=== PATIENT | female | born 1990 | race Caucasian/White ===

== ENCOUNTER 2019-03-28 12:12 | Emergency (ER) | payer OTHER ==
[~2019-03-28] VITALS: Ht 162.6 cm; Wt 78.6 kg
[2019-03-28 12:27] VITALS: BP 154/86
--- NOTE | 2019-03-28 12:27 | NUR ---
ANIMAL CONTROL CALLED DISPATCH AND NOTIFIED OF DOG BITE AND REQUESTED ANIMAL CONTROL.
--- NOTE | 2019-03-28 12:40 | NUR ---
ANIMAL CONTROL ANIMAL CONTROL ARRIVED AND IN ROOM TO TALK WITH PATIENT.
[2019-03-28] MEDS ORDERED: TRIPLE ANTIBIOTIC OINTMENT TP ONE (13:12)
[2019-03-28] MEDS ORDERED: ADACEL VIAL IM ONE ×2 (13:22→13:30)
--- NOTE | 2019-03-28 13:28 | ER.PDOC ---
General Chief Complaint: Animal Bite Stated Complaint: ANIMAL BITE Time seen by MD: 13:19 Source: patient Exam Limitations: no limitations History of Present Illness Initial Comments Dog bite to the face last night. Onset: yesterday Where: park Animal: dog Animal Appearance: unknown Animal Immunizations: unknown Animal Disposition: Animal Control Notified Context of Attack: entered animal's domain Severity of Injury: bitten Injury Location: face Past Medical History Medical History: no pertinent history Surgical History: cholecystectomy, other Social History Alcohol Use: occassionally Drug Use: none Review of Systems Constitutional: no symptoms reported Respiratory: no symptoms reported Cardiovascular: no symptoms reported Gastrointestinal: no symptoms reported Skin: see HPI All Other Systems: Reviewed and Negative Physical Exam General Appearance: alert, no distress Skin: laceration (beneath left lower eyelid) Neuro/Vascular/Tendon: no vascular compromise, sensation nml, oriented x3, nml ROM, CN's nml as tested Psych: mood/affect nml Neck: uninjured, nml inspection Resp/CVS: chest non-tender, breath sounds nml, heart sounds nml, reg. rate & rhythm Abdomen: nml inspection, non-tender Back: nml inspection Extremities: nml inspection, no infection, ROM nml 1 - Lac Results/Orders Results/Orders Orders - NIESHA MANUEL MD Neomycin/Bacitracin/Polymyxinb (Triple A (03/28/19 13:12) Diph,Pertuss(Acell),Tet Vac/Pf (Adacel V (03/28/19 13:30) Vital Signs Date Time Temp Pulse Resp B/P (MAP) Pulse Ox O2 Delivery O2 Flow Rate FiO2 03/28/19 12:27 98.2 97 18 154/86 (108) 99 Room Air 03/28/19 12:27 98.2 97 18 99 03/28/19 12:27 98.2 97 18 Progress Progress Wound cleaned and dressed by RN. Animal control came and saw patient here. Told patient that she has to follow up with Department of health in 2 days when they will be open for post exposure prophylaxis. She voiced understanding. Course Sepsis Screening Results: Posi: POSITIVE SEPSIS RISK Vitals & review Data Vital Sign - Last 24 Hours 03/28/19 03/28/19 03/28/19 12:27 12:27 12:27 Temp 98.2 98.2 98.2 Pulse 97 97 97 Resp 18 18 18 B/P (MAP) 154/86 (108) Pulse Ox 99 99 O2 Delivery Room Air O2 Sat by Pulse Oximetry: 99 Departure Time of Disposition: 13:35 Disposition: 01 HOME, SELF-CARE Impression: Primary Impression: Dog bite of face Condition: Stable Referrals: PCP,UNKNOWN (PCP) PRIMARY CARE PROVIDER Additional Instructions: Augmentin Clean wound daily with soap and water and apply Neosporin F/U with PCP in 2-3 days F/U with [facility] in 2 days F/U with animal control Return to ED if any concerns. Duration or Time Spent with Pa: 30 mins Problem Qualifiers Primary Impression: Dog bite of face Encounter type: initial encounter Qualified Codes: S01.85XA - Open bite of other part of head, initial encounter; W54.0XXA - Bitten by dog, initial encounter NIESHA MANUEL MD Mar 28, 2019 13:28
== END 2019-03-28 13:56 | disposition home or self-care (01) ==
LOC: ER 12:12
DX: S01.152A Open bite of left eyelid and periocular area, initial encounter (principal); Z90.49 Acquired absence of other specified parts of digestive tract; W54.0XXA Bitten by dog, initial encounter; Y93.89 Activity, other specified; Y92.830 Public park as the place of occurrence of the external cause; Y99.8 Other external cause status
CPT/HCPCS: 90471; 90715; 99283